=== PATIENT | male | born 1955 | race Caucasian/White ===

== ENCOUNTER 2017-03-25 11:14 | Day surgery (SDC) | payer MEDICAID ==
[~2017-03-25] VITALS: Ht 162.6 cm; Wt 69.7 kg
[2017-03-25 13:51] VITALS: Ht 162.6 cm; Wt 69.7 kg
[2017-03-25] MEDS ORDERED: LISINOPRIL PO (14:05)
[2017-03-25] MEDS ORDERED: ASPI-664 PO (14:05)
[2017-03-25] MEDS ORDERED: METFORMIN PO (14:05)
[2017-03-25] MEDS ORDERED: ATORVASTATIN PO (14:05)
[2017-03-25 14:21] VITALS: BP 145/91; PULSE 67; RESP 18
--- NOTE | 2017-03-25 15:00 | OPPN ---
Date/Time of Note Date/Time of Note DATE: 03/25/17 TIME: 15:00 Operative Report Preoperative Diagnosis Screening Postoperative Diagnosis Diverticulosis of the colon Internal hemorrhoids No colon neoplasm is identified Operation/Procedure Performed Colonoscopy Surgeon see signature line assisted living associate None Anesthesia: moderate sedation Estimated blood loss: none Transfusion Required none Specimen None Grafts/Implants none Complications none CRISTY THOMSON MD Mar 25, 2017 15:00
--- NOTE | 2017-03-25 20:28 | GILP ---
DATE OF PROCEDURE: NAME OF PROCEDURE: Colonoscopy. SURGEON: Cristy Vargas MD PREOPERATIVE DIAGNOSIS: Screening colonoscopy. POSTOPERATIVE DIAGNOSES: 1. Colonoscopy all the way to the cecum. 2. Diverticulosis of the colon. 3. Internal hemorrhoids. 4. No colon neoplasm was identified. INDICATION FOR THE PROCEDURE: Mr. Jose Hung is a 61-year-old male patient who was scheduled fo r screening colonoscopy. The procedure and possible complications were well explained to the patient, he understood and conse nted to the procedure. DESCRIPTION OF PROCEDURE: Under the influence of fentanyl and Versed, the colonoscope was carefully introduced in the rectum and under direct vision, it was advanced all the way to the cecum. FINDINGS: The patient had diverticulosis of the colon. He also had internal hemorrhoids. No colon neoplasm was identified. He tolerated the procedure very well and there was no complication from the procedure. At the end o f the procedure, he was awake with stable vital signs and he was discharged home to the care of his family. IMPRESSION: Please see postoperative diagnosis. PLAN: 1. High-fiber diet. 2. Next screening colonoscopy in 10 years. Dictated By: CRISTY BUTCHER/ALEXANDER Conf#: [id number] DID#: [id number]
== END 2017-03-25 16:19 | disposition home or self-care (01) ==
LOC: GIL 11:14
PROVIDERS: ATTEND Internal Medicine Gastroenterology
DX: Z12.11 Encounter for screening for malignant neoplasm of colon (principal); K64.8 Other hemorrhoids; I10 Essential (primary) hypertension; E11.9 Type 2 diabetes mellitus without complications
CPT/HCPCS: 43239; 82962; Z7610